=== PATIENT | male | born 1980 | race Caucasian/White ===

== ENCOUNTER 2023-04-24 11:42 | Outpatient (CLI) | payer OTHER, SELFPAY ==
--- NOTE | ~2023-04-24 | XR_ITS ---
XR lumbar spine 2-3V DATE: 04/24/2023 12:02 INDICATION: Chronic low back pain for 27 years. History of compression fracture. TECHNIQUE: AP, lateral, coned lateral lumbosacral views COMPARISON: 08/08/2011 lumbar spine FINDINGS: There is diffuse osteopenia. Stable mild anterior wedging of L1 and to a lesser extent L2 vertebral bodies, unchanged since 012. No fracture or bone destruction. Normal alignment of the lumbar spine. Moderately prominent degenerative disc disease with prominent posterior spurring at L5-S1. There is moderate and mild degenerative disc disease at L1-2 and L2-3, respectively. Included lower thoracic and lumbar pedicles are intact. No recent fracture or bone destruction. Normal alignment at the sacroiliac joints. IMPRESSION: Chronic mild L1 and L2 anterior wedge compression fracture deformities Multilevel degenerative disc disease, moderate at L1-2, mild at L2-3, moderately prominent at L5-S1 w ith prominent posterior spurring at the latter interspace Reviewed, dictated and finalized at [facility] IMPRESSION: Chronic mild L1 and L2 anterior wedge compression fracture deformit ies Multilevel degenerative disc disease, moderate at L1-2, mild at L2-3, moderatel y prominent at L5-S1 with prominent posterior spurring at the latter interspace
== END 2023-04-24 11:43 | disposition home or self-care (01) ==
PROVIDERS: PCP Physician Assistant; Visit Provider Physician Assistant
DX: M54.50 Low back pain, unspecified (principal); M48.56XA Collapsed vertebra, not elsewhere classified, lumbar region, initial encounter for fracture; M51.36 Other intervertebral disc degeneration, lumbar region
CPT/HCPCS: 72100

== ENCOUNTER 2023-08-16 10:02 | Outpatient (CLI) | payer OTHER, SELFPAY ==
--- NOTE | ~2023-08-16 | MR_ITS ---
MRI of the lumbar spine Clinical History: Back pain Technique: Axial T2-weighted images, and sagittal T1-weighted, T2-weighted, and T2 fat-sat images wer e acquired. Findings: There is no acute fracture or subluxation of the lumbar spine. Probable minimal chronic ant erior wedging deformity of L1. No suspicious bone marrow signal abnormality seen. At L1-L2, there is moderate degenerative disc narrowing. There is minimal disc bulge with mild facet arthropathy. No central canal stenosis or neural foraminal narrowing. At L2-L3, there is mild degenerative disc narrowing. There is central disc protrusion with advanced f acet arthropathy. No central canal stenosis or neural foraminal narrowing. At L3-L4, there is minimal disc bulge with advanced facet arthropathy. No central canal stenosis or n eural foraminal narrowing. At L4-L5, there is central broad-based disc protrusion with moderate to advanced facet arthropathy. T here is mild effacement of the ventral thecal sac, without high-grade canal stenosis. Neural foramina are preserved. At L5-S1, there is mild disc bulge/protrusion, with moderate facet arthropathy. No central canal sten osis. There is moderate to advanced left neural foraminal narrowing, and moderate right neural forami nal narrowing. Paravertebral soft tissues are unremarkable. Impression: Moderate degenerative spondylosis at L5-S1, with bilateral neural foraminal narrowing, as detailed ab ove. Additional mild degenerative changes overall, as detailed above. Reviewed, dictated and finalized at [facility]. Impression: Moderate degenerative spondylosis at L5-S1, with bilateral neural foraminal dre rowing, as detailed above. Additional mild degenerative changes overall, as detailed above.
== END 2023-08-16 10:03 | disposition home or self-care (01) ==
LOC: CHSIMG 10:03
PROVIDERS: PCP Physician Assistant; Visit Provider Physician Assistant
DX: M54.50 Low back pain, unspecified (principal); M43.06 Spondylolysis, lumbar region
CPT/HCPCS: 72148

== ENCOUNTER 2023-08-27 09:15 | Emergency (ER) | payer OTHER, SELFPAY ==
[2023-08-27 09:15] VITALS: BP 127/105; PULSE 124; RESP 18; TEMP 36.4; O2SAT 91
--- NOTE | 2023-08-27 09:20 | ED.BACK ---
HPI - Back Pain/Injury General Chief Complaint: Back Pain/Injury Stated Complaint: left hip pain Time Seen by Provider: 08/27/23 09:20 Source: patient Mode of arrival: wheelchair Limitations: no limitations History of Present Illness HPI Narrative: Patient is a 42-year-old male with left lower extremity sciatica for the past few months. He is here with acute worsening of his sciatica in the last 2 days. He had an MRI done this past week here at the hospital which does show multiple changes specifically at L5 and S1 moderate left sided sciatica changes. See MRI report. Patient is trying to get into a neurosurgeon. He has been to [facility]. He has not contacted the primary doctor today. MD elicited complaint: back pain Pertinent past history: prior back pain Onset (ago): day(s) (2) Timing: constant Severity: moderate Pain scale (0-10): 8 Similar Symptoms Previously: Yes Quality: sharp and other ( Shooting pains) Location: lumbar spine Radiation: buttocks, left upper leg and left leg below the knee Exacerbating factors: movement and sitting upright Relieving factors: immobilization and supine Context: while lifting Associated symptoms: denies other symptoms and other ( no loss or retention of urine; no saddle anesthesia; no stool changes) Treatments prior to arrival: NSAIDS Related Data Home Medications Medication Instructions Recorded Confirmed cyclobenzaprine 10 mg tablet 10 mg PO TID 08/27/23 08/27/23 gabapentin 600 mg tablet 600 mg PO TID 08/27/23 08/27/23 tramadol 50 mg tablet 50 mg PO Q6-8H 08/27/23 08/27/23 Allergies Allergy/AdvReac Type Severity Reaction Status Date / Time Kiwi Allergy Unknown Unknown Uncoded 08/27/23 09:27 Review of Systems Review of Systems: All systems reviewed & are unremarkable except as noted in HPI and below Constitutional: Constitutional: Reports no additional constitutional complaints Eyes: Eyes: Reports no additional eye complaints ENT: Reports system reviewed and no additional complaints, except as documented Cardiovascular: Cardiovascular: Reports no additional cardiovascular complaints Respiratory: Respiratory: Reports no additional respiratory complaints Gastrointestinal: Gastrointestinal: Reports no additional gastrointestinal complaints Genitourinary: Genitourinary: Reports no additional male genitourinary complaints Musculoskeletal: Musculoskeletal: Reports no additional musculoskeletal complaints Integumentary/Breasts: Skin/Breast: Reports system reviewed and no additional complaints, except as docu Neurologic: Reports system reviewed and no additional complaints, except as documented Psychiatric: Psychiatric: Reports no additional psychiatric complaints Endocrine: Endocrine: Reports no additional endocrine complaints Hematologic/Lymphatic: Hematologic/Lymphatic: Reports no additional hematologic/lymphatic complaints Allergic/Immunologic: Allergic/Immunologic: Reports no additional allergic/immunologic complaints Exam Const: General: healthy appearing Nutritional Appearance: well nourished Orientation/consciousness: patient oriented x3 HENMT: Head: normal to inspection Ears: external ears normal Face/Nose/Sinus: Normal external nose present Eyes: Conjunctivae: conjunctivae normal Pupils: Equal, round and reactive pupils present EOM: EOMs intact bilaterally Neck: Neck: normal visual inspection Chest: Chest palpation & inspection: normal inspection of the chest Resp: Effort & Inspection: normal respiratory effort and not labored Auscultation: clear to auscultation bilaterally Cardio: Rate: regular rate Rhythm: regular rhythm Heart sounds: no murmurs GI: Inspection: non-distended GI Palp: Yes Soft to palpation and No Tenderness to palpation present (GI) Auscultation: normal bowel sounds : General: Yes bladder normal to palpation Back/Spine/Pelvis: Back: no CVA tenderness Skin: General skin exam: normal color Rashes: no rashes
[2023-08-27] MEDS: KETOROLAC (*BKC) 60 MG/2 ML VIAL IM (09:46)
[2023-08-27] MEDS: methylPREDNISolone SOD SUCC 125 MG VIAL IM (09:46)
[2023-08-27] MEDS: carisoprodoL (*CRX) 350 MG TABLET PO (09:49)
[2023-08-27 10:13] VITALS: BP 121/76; PULSE 104; RESP 16; TEMP 36.6; O2SAT 93
== END 2023-08-27 10:13 | disposition home or self-care (01) ==
PROVIDERS: Emergency Provider Emergency Medicine; PCP Physician Assistant
DX: M54.32 Sciatica, left side (principal); M54.16 Radiculopathy, lumbar region
CPT/HCPCS: 96372; 99284; A9270; J1885; J2919